=== PATIENT | female | born 1995 | race African-American/Black ===

== ENCOUNTER 2018-01-04 17:19 | Emergency (ER) | payer OTHER ==
[~2018-01-04] VITALS: Ht 167.6 cm; Wt 97.5 kg
[~2018-01-04 17:19] MED LIST: AUGMENTIN 875875 MG PO; NORCO 5-325 TA1 EACH PO; PROMETHAZINE-C120 ML PO; PROVENTIL HFA6.7 G1 INH
[2018-01-04 18:04] VITALS: BP 132/71
[2018-01-04] MEDS ORDERED: PREDNISONE 20 M20 MG PO (18:22)
[2018-01-04] MEDS ORDERED: MOBIC7.5 MG PO (18:22)
== END 2018-01-04 18:40 | disposition home or self-care (01) ==
LOC: ER 17:19
DX: J02.0 Streptococcal pharyngitis (principal)

== ENCOUNTER 2021-03-01 19:27 | Emergency (ER) | payer OTHER ==
[~2021-03-01] VITALS: Ht 167.6 cm; Wt 99.8 kg
[~2021-03-01 19:27] MED LIST changes: +MOBIC7.5 MG PO; +PREDNISONE 20 M20 MG PO
[2021-03-01 19:40] VITALS: BP 125/78
[2021-03-01] MEDS ORDERED: NOHOMEMEDICATIONS (19:45)
[2021-03-01] MEDS ORDERED: MOBIC7.5 MG PO (20:51)
== END 2021-03-01 22:16 | disposition home or self-care (01) ==
LOC: ER 19:27
DX: S93.492A Sprain of other ligament of left ankle, initial encounter (principal); S93.692A Other sprain of left foot, initial encounter; J45.909 Unspecified asthma, uncomplicated; V49.88XA Car occupant (driver) (passenger) injured in other specified transport accidents, initial encounter; Y93.89 Activity, other specified; Y92.413 State road as the place of occurrence of the external cause; Y99.9 Unspecified external cause status